=== PATIENT | female | born 1975 | race Caucasian/White ===

== ENCOUNTER 2016-05-08 12:01 | Emergency (ER) | payer MEDICAID ==
[2016-05-08 12:07] VITALS: BMI 24.2
[2016-05-08 12:08] VITALS: BP 107/71; PULSE 80; RESP 17; TEMP 98.9; O2SAT 100
--- NOTE | 2016-05-08 13:25 | C.PDOC ---
Time Seen by Provider: 05/08/16 12:13 Chief Complaint (Nursing): ENT Problem Past Medical History Vital Signs: Last Vital Signs Temp 98.9 F 05/08/16 12:07 Pulse 80 05/08/16 12:07 Resp 17 05/08/16 12:07 BP 107/71 05/08/16 12:07 Pulse Ox 100 05/08/16 12:07 - Medical History PMH: Bronchitis (frequent) Family History: States: Unknown Family Hx - Social History Hx Tobacco Use: No (Quit a few months ago) Hx Alcohol Use: No Hx Substance Use: No - Immunization History Hx Tetanus Toxoid Vaccination: Yes Hx Influenza Vaccination: Yes Hx Pneumococcal Vaccination: Yes ED Course And Treatment O2 Sat by Pulse Oximetry: 100 Disposition - Disposition Referrals: Yobani Ingram MD [Staff Provider] - Disposition: HOME/ ROUTINE Disposition Time: 13:23 Condition: GOOD Additional Instructions: Follow up with the medical doctor within 1-2 days. Return if worsened. Prescriptions: Ibuprofen [Motrin] 600 mg PO TID #21 tab Benzonatate [Tessalon Perles] 200 mg PO TID PRN #30 sgl PRN Reason: Cough predniSONE [Prednisone] 20 mg PO BID #10 tab Instructions: Upper Respiratory Infection (ED) - Clinical Impression Clinical Impression: Upper respiratory infection
--- NOTE | 2016-05-08 13:28 | C.PDOC ---
History Of Present Illness 41 yr old female presents to the ER with complaints of cough for the past 3 days , associated with sore throat and chills. Patient states when she coughs it feels like congestion in the chest. Patient denies fever, nausea, vomiting, rash , recent travel, weakness or numbness. Time Seen by Provider: 05/08/16 12:13 Chief Complaint (Nursing): ENT Problem History Per: Patient History/Exam Limitations: None Onset/Duration Of Symptoms: Days (3) Past Medical History Reviewed: Historical Data, Nursing Documentation, Vital Signs Vital Signs: Last Vital Signs Temp 98.9 F 05/08/16 12:07 Pulse 80 05/08/16 12:07 Resp 17 05/08/16 12:07 BP 107/71 05/08/16 12:07 Pulse Ox 100 05/08/16 13:33 - Medical History PMH: Bronchitis (frequent) Family History: States: No Known Family Hx - Social History Hx Tobacco Use: No (Quit a few months ago) Hx Alcohol Use: No Hx Substance Use: No - Immunization History Hx Tetanus Toxoid Vaccination: Yes Hx Influenza Vaccination: Yes Hx Pneumococcal Vaccination: Yes Review Of Systems Except As Marked, All Systems Reviewed And Found Negative. Constitutional: Positive for: Chills. Negative for: Fever ENT: Positive for: Throat Pain Respiratory: Positive for: Cough (with chest congestion ) Gastrointestinal: Negative for: Nausea, Vomiting Skin: Negative for: Rash Neurological: Negative for: Weakness, Numbness Physical Exam - Physical Exam Appears: Non-toxic, No Acute Distress Skin: Warm, Dry, No Rash Head: Atraumatic, Normacephalic Eye(s): bilateral: Normal Inspection, PERRL, EOMI Ear(s): Bilateral: Normal Throat: Normal, No Erythema, No Exudate, No Drooling Neck: Normal, Normal ROM, Supple Chest: Symmetrical, No Tenderness Cardiovascular: Rhythm Regular, No Murmur Respiratory: Normal Breath Sounds, No Rales, No Rhonchi, No Stridor, No Wheezing Gastrointestinal/Abdominal: Normal Exam, Soft, No Tenderness, No Guarding, No Rebound Extremity: Normal ROM, No Swelling Neurological/Psych: Oriented x3, Normal Speech, Normal Motor ED Course And Treatment O2 Sat by Pulse Oximetry: 100 Medical Decision Making Medical Decision Making: Physical exam is negative and lungs are clear xrays are not warranted at this time. PLAN: * Motrin PO * Tessalon PO * Prednisone PO Disposition - Disposition Referrals: Yobani Ingram MD [Staff Provider] - Disposition: HOME/ ROUTINE Disposition Time: 13:30 Condition: STABLE Additional Instructions: Follow up with the medical doctor within 1-2 days. Return if worsened. Prescriptions: Ibuprofen [Motrin] 600 mg PO TID #21 tab Benzonatate [Tessalon Perles] 200 mg PO TID PRN #30 sgl PRN Reason: Cough predniSONE [Prednisone] 20 mg PO BID #10 tab Instructions: Upper Respiratory Infection (ED) - Clinical Impression Clinical Impression: Upper respiratory infection - PA / ONCOLOGY PHYSICIAN / Resident Statement MD/DO has reviewed & agrees with the documentation as recorded. - Scribe Statement The provider has reviewed the documentation as recorded by the Scribe Binta Emery All medical record entries made by the Scribe were at my direction and personally dictated by me. I have reviewed the chart and agree that the record accurately reflects my personal performance of the history, physical exam, medical decision making, and the department course for this patient. I have also personally directed, reviewed, and agree with the discharge instructions and disposition.
== END 2016-05-08 13:38 | disposition home or self-care (01) ==
LOC: C.ER 12:01
DX: J06.9 Acute upper respiratory infection, unspecified (principal)

== ENCOUNTER 2016-05-27 17:01 | Emergency (ER) | payer MEDICAID ==
[2016-05-27 17:01] VITALS: BMI 24.2
[2016-05-27 17:07] VITALS: TEMP 98.2; O2SAT 96
--- NOTE | 2016-05-27 17:34 | C.PDOC ---
History Of Present Illness 41 y/o female presents to ED with complaint of cough for almost 2 weeks. Patient states she was seen in the ER, given Tessalon, which she has taken with no improvement. Patient states cough has been worsening and is now productive of yellow sputum. Denies fever, chills, shortness of breath, or other associated symptoms. Time Seen by Provider: 05/27/16 17:10 Chief Complaint (Nursing): Flu-like Symptoms History Per: Patient History/Exam Limitations: no limitations Onset/Duration Of Symptoms: Days Current Symptoms Are (Timing): Worse Location Of Pain: None Associated Symptoms: Cough, Sputum. denies: Fever, Chills, Sore Throat, Vomiting Ear Symptoms: Bilateral: None Recent travel outside of the [place]: No Past Medical History Reviewed: Historical Data, Nursing Documentation, Vital Signs Vital Signs: Last Vital Signs Temp 98.2 F 05/27/16 17:05 Pulse 72 05/27/16 18:12 Resp 18 05/27/16 18:12 BP 119/65 05/27/16 18:12 Pulse Ox 96 05/27/16 18:15 - Medical History PMH: Bronchitis (frequent) Family History: States: Unknown Family Hx - Social History Hx Tobacco Use: No (Quit a few months ago) Hx Alcohol Use: No Hx Substance Use: No - Immunization History Hx Tetanus Toxoid Vaccination: Yes Hx Influenza Vaccination: Yes Hx Pneumococcal Vaccination: Yes Review Of Systems Except As Marked, All Systems Reviewed And Found Negative. Constitutional: Negative for: Fever, Chills Cardiovascular: Negative for: Chest Pain Respiratory: Positive for: Cough, Sputum. Negative for: Shortness of Breath, Wheezing Gastrointestinal: Negative for: Nausea, Vomiting, Abdominal Pain Skin: Negative for: Rash Neurological: Negative for: Headache, Dizziness Physical Exam - Physical Exam Appears: Non-toxic, No Acute Distress Skin: Normal Color, Warm, Dry Head: Atraumatic, Normacephalic Eye(s): bilateral: Normal Inspection, EOMI Ear(s): Bilateral: Normal Oral Mucosa: Moist Throat: Normal, No Erythema, No Exudate, No Drooling Neck: Supple Chest: Symmetrical Cardiovascular: Rhythm Regular Respiratory: Normal Breath Sounds, No Accessory Muscle Use, No Rales, No Rhonchi , No Wheezing Gastrointestinal/Abdominal: Soft, No Tenderness, No Guarding, No Rebound Back: Normal Inspection Extremity: Normal ROM, Capillary Refill (< 2 sec. ) Neurological/Psych: Oriented x3, Normal Speech, Normal Cognition ED Course And Treatment O2 Sat by Pulse Oximetry: 96 (RA) Pulse Ox Interpretation: Normal - Radiology CXR: Interpreted by Me CXR Interpretation: Yes: No Acute Disease. No: Infiltrates Medical Decision Making Medical Decision Making: Plan: * CxR * Reassess Prior Visits: Notes and results from previous visits were reviewed. Progress Notes: CxR negative for acute disease or infiltrates, as read by me. On reassessment, patient is resting comfortably, and is in no acute distress. Patient instructed to follow up with clinic/PMD within 1-2 days. Disposition Counseled Patient/Family Regarding: Diagnosis, Need For Followup, Rx Given - Disposition Referrals: Yobani Ingram MD [Staff Provider] - Disposition: HOME/ ROUTINE Disposition Time: 17:34 Condition: STABLE Additional Instructions: Your xray shows no pnemonia Take Z-pack daily for bronchitis and cough medicine as needed Cough can linger for 2-3 weeks Follow up with your primary doctor or clinic Prescriptions: Promethazine DM [Phenergan DM Syrup] 5 ml PO Q8 PRN #3 oz PRN Reason: Cough Azithromycin [Z-Reyes] 250 mg PO DAILY #6 tab Instructions: Acute Bronchitis (ED) - POA Present On Arrival: None - Clinical Impression Clinical Impression: Bronchitis - PA / PATHOLOGY TEACHER / Resident Statement MD/DO has reviewed & agrees with the documentation as recorded. - Scribe Statement The provider has reviewed the documentation as recorded by the Aicha Carty Provider Scribe Attestation: All medical record entries made by the Aicha were at my direction and personally dictated by me. I have reviewed the chart and agree that the record accurately reflects my personal performance of the history, physical exam, medical decision making, and the department course for this patient. I have also personally directed, reviewed, and agree with the discharge instructions and disposition.
--- NOTE | 2016-05-27 18:03 | RAD ---
HISTORY: cough, sob COMPARISON: 02/17/2015. TECHNIQUE: Chest PA and lateral FINDINGS: LUNGS: No active pulmonary disease. PLEURA: No significant pleural effusion identified. No pneumothorax apparent. CARDIOVASCULAR: Normal. OSSEOUS STRUCTURES: No significant abnormalities. VISUALIZED UPPER ABDOMEN: Normal. OTHER FINDINGS: None. IMPRESSION: No active disease. No significant interval change compared to the prior examination(s).
[2016-05-27 18:13] VITALS: BP 119/65; PULSE 72; RESP 18
== END 2016-05-27 18:13 | disposition home or self-care (01) ==
LOC: C.ER 17:01
DX: J40 Bronchitis, not specified as acute or chronic (principal); Z87.891 Personal history of nicotine dependence

== ENCOUNTER 2018-01-31 16:35 | Emergency (ER) | payer MEDICAID ==
[2018-01-31 16:54] VITALS: BMI 25.0
[2018-01-31 16:56] VITALS: BP 113/73; PULSE 78; TEMP 98.9; O2SAT 100
[2018-01-31] MEDS ORDERED: guaiFENesin 100 mg/5 ml Syrup UD PO STA (17:08)
--- NOTE | 2018-01-31 17:09 | C.PDOC ---
History Of Present Illness 43 year old female presents to the ED complaining of nasal congestion, dry nonproductie cough, sore throat, and mild laryngitis for 4 days. Reports her voice is diminished. States she took Tylenol with no relief. Time Seen by Provider: 01/31/18 17:03 Chief Complaint (Nursing): Cough, Cold, Congestion History Per: Patient History/Exam Limitations: no limitations Onset/Duration Of Symptoms: Days (4) Current Symptoms Are (Timing): Still Present Location Of Pain: Throat Associated Symptoms: Sore Throat, Cough, Nasal Congestion. denies: Fever, Chills, Nausea, Vomiting, Diarrhea Ear Symptoms: Bilateral: None Past Medical History Reviewed: Historical Data, Nursing Documentation, Vital Signs Vital Signs: Last Vital Signs Temp 98.9 F 01/31/18 16:51 Pulse 78 01/31/18 16:51 Resp 20 01/31/18 16:51 BP 113/73 01/31/18 16:51 Pulse Ox 100 01/31/18 16:51 - Medical History PMH: Bronchitis (frequent) Surgical History: Family History: States: No Known Family Hx - Social History Hx Tobacco Use: No (Quit a few months ago) Hx Alcohol Use: No Hx Substance Use: No - Immunization History Hx Tetanus Toxoid Vaccination: No Hx Influenza Vaccination: Yes Hx Pneumococcal Vaccination: Yes Review Of Systems Except As Marked, All Systems Reviewed And Found Negative. Constitutional: Negative for: Fever, Chills ENT: Positive for: Nose Congestion, Throat Pain. Negative for: Ear Pain Respiratory: Positive for: Cough. Negative for: Shortness of Breath Gastrointestinal: Negative for: Nausea, Vomiting, Abdominal Pain, Diarrhea Physical Exam - Physical Exam Appears: Non-toxic, No Acute Distress Skin: Warm, Dry, No Rash Head: Normacephalic Eye(s): bilateral: Normal Inspection Ear(s): Bilateral: Normal Nose: Normal Oral Mucosa: Moist Throat: Erythema (mild), No Exudate, No Drooling Neck: Supple Chest: Symmetrical Cardiovascular: Rhythm Regular Respiratory: Normal Breath Sounds, No Rales, No Rhonchi, No Wheezing Extremity: Normal ROM Neurological/Psych: Oriented x3, Normal Speech Gait: Steady ED Course And Treatment O2 Sat by Pulse Oximetry: 100 (RA) Pulse Ox Interpretation: Normal Medical Decision Making Medical Decision Making: Plan - Robitusin 100mg PO - Motrin 600mg PO viral syndrome mild laryngitis no FAISAL, clear lungs, mild throat erythema Disposition Doctor Will See Patient In The: Office Counseled Patient/Family Regarding: Studies Performed, Diagnosis - Disposition Referrals: Yobani Ingram MD [Staff Provider] - Disposition: HOME/ ROUTINE Disposition Time: 17:09 Condition: GOOD Additional Instructions: sigue Dayquil/Nyquil viky dirijidos (o' el quivelente) No trabajas hasta que no tiene fieere por 24 horas. Instructions: Viral Syndrome (DC) Forms: [employer] (Kosovan), Work Excuse Print Language: SLOVAK - Clinical Impression Clinical Impression: Influenza-like illness - Scribe Statement The provider has reviewed the documentation as recorded by the Scribmaite Fernandes All medical record entries made by the Scribe were at my direction and personally dictated by me. I have reviewed the chart and agree that the record accurately reflects my personal performance of the history, physical exam, medical decision making, and the department course for this patient. I have also personally directed, reviewed, and agree with the discharge instructions and disposition.
[2018-01-31] MEDS ORDERED: guaiFENesin 100 mg/5 ml Syrup UD ONE (17:13)
[2018-01-31 17:18] VITALS: RESP 17
== END 2018-01-31 17:17 | disposition home or self-care (01) ==
LOC: C.ER 16:35
DX: J11.1 Influenza due to unidentified influenza virus with other respiratory manifestations (principal)

== ENCOUNTER 2018-03-03 08:25 | Emergency (ER) | payer MEDICAID ==
[2018-03-03 08:25] VITALS: BMI 24.2
[2018-03-03 08:47] VITALS: RESP 18; O2SAT 99
[2018-03-03] MEDS ORDERED: Sodium Chloride 0.9% 1,000 ML IV ONE (09:09)
[2018-03-03 10:01] LABS: BASO % 0.6 % (0.0-2.0); EOS # 0.1 K/uL (0.0-0.7); EOS % 0.7 % (0.0-4.0); HEMOGLOBIN 12.7 g/dL (11.0-16.0); LYMPH # 1.4 K/uL (1.0-4.3); LYMPH % 18.1 % (20.0-40.0); MEAN CELL VOLUME 93.3 fL (81.0-99.0); MEAN CORPUSCULAR HEMOGLOBIN 32.1 pg (27.0-31.0); MEAN CORPUSCULAR HGB CONC 34.4 g/dL (33.0-37.0); MEAN PLATELET VOLUME 8.8 fL (7.2-11.7); MONO # 0.7 K/uL (0.0-0.8); MONO % 9.3 % (0.0-10.0); NEUT # 5.5 K/uL (1.8-7.0); NEUT % 71.3 % (50.0-75.0); RBC 3.94 Mil/uL (3.80-5.20); RED CELL DISTRIBUTION WIDTH 13.1 % (11.5-14.5); WHITE BLOOD COUNT 7.7 K/uL (4.8-10.8)
[2018-03-03 10:08] LABS: PROTHROMBIN TIME 11.4 SECONDS (9.7-12.2)
[2018-03-03 10:26] LABS: HCG,QUALITATIVE URINE NEGATIVE (NEGATIVE)
[2018-03-03 10:29] LABS: SQUAMOUS EPITHIAL < 1 /hpf (0-5); URINE BACTERIA MOD (<OCC); URINE BILIRUBIN NEGATIVE (NEGATIVE); URINE BLOOD 1+ (NEGATIVE); URINE CLARITY Clear (Clear); URINE COLOR Yellow (YELLOW); URINE GLUCOSE (UA) NORMAL (Normal); URINE LEUKOCYTE ESTERASE 1+ Leu/uL (Negative); URINE PROTEIN NEGATIVE (NEGATIVE); URINE UROBILINOGEN NORMAL mg/dL (0.2-1.0)
[2018-03-03 10:41] LABS: ALB/GLOB RATIO 1.3 (1.0-2.1); ALBUMIN 4.1 g/dL (3.5-5.0); ALT/SGPT 22 U/L (9-52); AST/SGOT 15 U/L (14-36); BLOOD UREA NITROGEN 11 mg/dL (7-17); CALCIUM 8.8 mg/dl (8.6-10.4); GFR NON-AFRICAN AMERICAN > 60; LIPASE 35 U/L (23-300)
[2018-03-03] MEDS ORDERED: Iodixanol 320 mg/ml 150 ml Bottle IV ONE (12:17)
--- NOTE | 2018-03-03 12:37 | C.PDOC ---
History Of Present Illness Patient presents to ED c/o right sided periumbilical/RLQ pain since yesterday. She states the pain worsens with ambulationg, is contant and nonraditing. She denies nausea/vomiting/diarrhea, fever, dysuria/hematuria, vaginal discharge, prior episodes of similar kind of pain. Time Seen by Provider: 03/03/18 09:01 Chief Complaint (Nursing): Abdominal Pain History Per: Patient History/Exam Limitations: no limitations Onset/Duration Of Symptoms: Days (2) Severity: Moderate Location Of Pain/Discomfort: RLQ, Periumbilical (right ) Radiation Of Pain To:: None Past Medical History Reviewed: Historical Data, Nursing Documentation, Vital Signs Vital Signs: Last Vital Signs Temp 98.6 F 03/03/18 08:45 Pulse 84 03/03/18 08:45 Resp 18 03/03/18 08:45 BP 111/75 03/03/18 08:45 Pulse Ox 99 03/03/18 08:45 - Medical History PMH: Bronchitis (frequent) Surgical History: Family History: States: No Known Family Hx - Social History Hx Tobacco Use: No (Quit a few months ago) Hx Alcohol Use: No Hx Substance Use: No - Immunization History Hx Tetanus Toxoid Vaccination: No Hx Influenza Vaccination: Yes Hx Pneumococcal Vaccination: Yes Review Of Systems Constitutional: Negative for: Fever, Chills Cardiovascular: Negative for: Chest Pain, Palpitations Respiratory: Negative for: Cough, Shortness of Breath Gastrointestinal: Positive for: Abdominal Pain. Negative for: Nausea, Vomiting, Diarrhea Genitourinary: Negative for: Dysuria, Hematuria, Vaginal Discharge Skin: Negative for: Rash Physical Exam - Physical Exam Appears: Well, Non-toxic, In Acute Distress (in mild pain ) Skin: Warm, Dry Eye(s): bilateral: Normal Inspection Oral Mucosa: Moist Cardiovascular: Rhythm Regular Respiratory: Normal Breath Sounds, No Rales, No Rhonchi, No Wheezing Gastrointestinal/Abdominal: Bowel Sounds, Soft, Tenderness ((+) RLQ and R periumbilical TTP), No Distention, No Guarding, No Rebound Back: Normal Inspection, No CVA Tenderness Neurological/Psych: Oriented x3 ED Course And Treatment - Laboratory Results Result Diagrams: 03/03/18 09:52 03/03/18 10:11 Lab Results: PT 11.4 SECONDS (9.7-12.2) 03/03/18 09:52 INR 1.0 03/03/18 09:52 APTT 34 SECONDS (21-34) 03/03/18 09:52 Total Bilirubin 0.5 mg/dL (0.2-1.3) 03/03/18 10:11 AST 15 U/L (14-36) 03/03/18 10:11 ALT 22 U/L (9-52) 03/03/18 10:11 Alkaline Phosphatase 62 U/L (38-126) 03/03/18 10:11 Total Protein 7.1 g/dL (6.3-8.3) 03/03/18 10:11 Albumin 4.1 g/dL (3.5-5.0) 03/03/18 10:11 Globulin 3.0 gm/dL (2.2-3.9) 03/03/18 10:11 Albumin/Globulin Ratio 1.3 (1.0-2.1) 03/03/18 10:11 Lipase 35 U/L (23-300) 03/03/18 10:11 Urine Color Yellow (YELLOW) 03/03/18 10:11 Urine Clarity Clear (Clear) 03/03/18 10:11 Urine pH 5.0 (5.0-8.0) 03/03/18 10:11 Ur Specific Viola 1.006 (1.003-1.030) 03/03/18 10:11 Urine Protein Negative mg/dL (NEGATIVE) 03/03/18 10:11 Urine Glucose (UA) Normal mg/dL (Normal) 03/03/18 10:11 Urine Ketones Negative mg/dL (NEGATIVE) 03/03/18 10:11 Urine Blood 1+ (NEGATIVE) H 03/03/18 10:11 Urine Nitrate Negative (NEGATIVE) 03/03/18 10:11 Urine Bilirubin Negative (NEGATIVE) 03/03/18 10:11 Urine Urobilinogen Normal mg/dL (0.2-1.0) 03/03/18 10:11 Ur Leukocyte Esterase 1+ Charly/uL (Negative) H 03/03/18 10:11 Urine WBC (Auto) 12 /hpf (0-5) H 03/03/18 10:11 Urine RBC (Auto) 1 /hpf (0-3) 03/03/18 10:11 Ur Squamous Epith Cells < 1 /hpf (0-5) 03/03/18 10:11 Urine Bacteria Mod (<OCC) H 03/03/18 10:11 Urine HCG, Qual Negative (NEGATIVE) 03/03/18 10:11 Urine HCG, Qual Negative (NEGATIVE) 03/03/18 10:11 O2 Sat by Pulse Oximetry: 99 (RA) Pulse Ox Interpretation: Normal - CT Scan/US CT ABD/PELVIS Other Rad Studies (CT/US): Read By Radiologist, Radiology Report Reviewed CT/US Interpretation: Accession No. : [id number]. Patient Name / ID : DARRYL CONNELL / [id number]. Exam Date : 03/03/2018 12:30:22 ( Approved ). Study Comment : Sex / Age : F / 43Y. Creator : Adilene Gregory. Dictator : Niraj Shelton MD. Office Services Manager : Welcome Wagon Hostess : Niraj Shelton MD. Approver2 : Report Date : 03/03/2018 13:23:01. My Comment : . Date of service: 03/03/2018. PROCEDURE: CT Abdomen and Pelvis with contrast. HISTORY: rlq pain, r/o appendicitis. COMPARISON: None. TECHNIQUE: Following the intravenous administration of iodinated contrast material, a CT examination of the abdomen and pelvis performed from the domes of the diaphragms to the symphysis pubis with reformatted datasets provided in axial, sagittal and coronal planes. Oral contrast was not administered as per referring physician request. Coronal and sagittal reformats were generated. Contrast dose: Visipaque 320, 100 cc. Radiation dose: Total exam DLP = 373.46 mGy-cm. This CT exam was performed using one or more of the following dose reduction techniques: Automated exposure control, adjustment of the mA and/or kV according to patient size, and/or use of iterative reconstruction technique. FINDINGS: LOWER THORAX: Unremarkable. LIVER: Unremarkable. No gross lesion or ductal dilatation. GALLBLADDER AND BI LE DUCTS: Cholelithiasis minimally noted at the dependent gallbladder with the gallbladder distended but otherwise unremarkable. No mural thickening or pericholecystic fluid collection evident. PANCREAS: Unremarkable. No gross lesion or ductal dilatation. SPLEEN: Unremarkable. ADRENALS: Unremarkable. No mass. KIDNEYS AND URETERS: There is a small 9 mm lucency at the midpole right kidney antral laterally which poorly defined and difficult to characterize due to its small size. Bilateral renal parenchyma is otherwise unremarkable appearing. VASCULATURE: Unremarkable. No aortic aneurysm. No aortic atherosclerotic calcification or mural plaque present. BOWEL: Moderate fecal loading is seen throughout the colon. No bowel obstruction. No gross mural thickening. APPENDIX: Normal appendix. PERITONEUM: Unremarkable. No free fluid. No free air. LYMPH NODES: Unremarkable. No enlarged lymph nodes. BLADDER: Unremarkable. REPRODUCTIVE: Tampon in situ at the vagina. No laura picious adnexal findings. Note is made of trace fluid in the cul-de-sac however. BONES: No acute fracture. OTHER FINDINGS: None. IMPRESSION: 1. Cholelithiasis within a distended but otherwise unremarkable gallbladder. No biliary tree dilatation. 2. Small lucency at the midpole right kidney laterally which is difficult to characterize due to its small size. Nevertheless, it appears ill-defined. No pericolic reaction or fluid collection. This could represent a small parenchymal cyst though nodule is not excluded. 3. Nonspecific cul-de-sac fluid with no suspicious adnexal findings identified. 4. Normal appendix. Progress Note: Blood work, UA, Upreg, CT scan abd/pelvis ordered and reviewed. Patient given IV NS bolus, IV toradol. Disposition Counseled Patient/Family Regarding: Studies Performed, Diagnosis, Need For Followup, Rx Given - Disposition Referrals: Jaciel Retana MD [Staff Provider] - Yobani Ingram MD [Staff Provider] - Disposition: HOME/ ROUTINE Disposition Time: 14:30 Condition: STABLE Additional Instructions: FOLLOW UP WITH YOUR DOCTOR IN 1-2 DAYS, AND WITH GENERAL SURGEON WITHIN 1 WEEK USE MEDICATIONS DIRECTED RETURN TO ER IF SYMPTOMS WORSEN Prescriptions: Naproxen 375 mg PO BID PRN #20 tablet PRN Reason: pain Nitrofurantoin Macrocrystals [Macrobid] 1 cap PO BID #14 cap Instructions: Gallstones (DC), Urinary Tract Infection, Adult (DC) Forms: [employer] (Maori) Print Language: SLOVENIAN - Clinical Impression Clinical Impression: Cholelithiasis, UTI (urinary tract infection)
--- NOTE | 2018-03-03 14:08 | CT ---
Date of service: 03/03/2018 PROCEDURE: CT Abdomen and Pelvis with contrast HISTORY: rlq pain, r/o appendicitis COMPARISON: None. TECHNIQUE: Following the intravenous administration of iodinated contrast material, a CT examination of the abdomen and pelvis performed from the domes of the diaphragms to the symphysis pubis with reformatted datasets provided in axial, sagittal and coronal planes. Oral contrast was not administered as per referring physician request. Coronal and sagittal reformats were generated. Contrast dose: Visipaque 320, 100 cc Radiation dose: Total exam DLP = 373.46 mGy-cm. This CT exam was performed using one or more of the following dose reduction techniques: Automated exposure control, adjustment of the mA and/or kV according to patient size, and/or use of iterative reconstruction technique. FINDINGS: LOWER THORAX: Unremarkable. LIVER: Unremarkable. No gross lesion or ductal dilatation. GALLBLADDER AND BILE DUCTS: Cholelithiasis minimally noted at the dependent gallbladder with the gallbladder distended but otherwise unremarkable. No mural thickening or pericholecystic fluid collection evident. PANCREAS: Unremarkable. No gross lesion or ductal dilatation. SPLEEN: Unremarkable. ADRENALS: Unremarkable. No mass. KIDNEYS AND URETERS: There is a small 9 mm lucency at the midpole right kidney antral laterally which poorly defined and difficult to characterize due to its small size. Bilateral renal parenchyma is otherwise unremarkable appearing. VASCULATURE: Unremarkable. No aortic aneurysm. No aortic atherosclerotic calcification or mural plaque present. BOWEL: Moderate fecal loading is seen throughout the colon. No bowel obstruction. No gross mural thickening. APPENDIX: Normal appendix. PERITONEUM: Unremarkable. No free fluid. No free air. LYMPH NODES: Unremarkable. No enlarged lymph nodes. BLADDER: Unremarkable. REPRODUCTIVE: Tampon in situ at the vagina. No suspicious adnexal findings. Note is made of trace fluid in the cul-de-sac however. BONES: No acute fracture. OTHER FINDINGS: None. IMPRESSION: 1. Cholelithiasis within a distended but otherwise unremarkable gallbladder. No biliary tree dilatation. 2. Small lucency at the midpole right kidney laterally which is difficult to characterize due to its small size. Nevertheless, it appears ill-defined. No pericolic reaction or fluid collection. This could represent a small parenchymal cyst though nodule is not excluded. 3. Nonspecific cul-de-sac fluid with no suspicious adnexal findings identified. 4. Normal appendix.
[2018-03-03 14:58] VITALS: BP 109/75; PULSE 87; TEMP 98.4
== END 2018-03-03 14:57 | disposition home or self-care (01) ==
LOC: C.ER 08:25
DX: N39.0 Urinary tract infection, site not specified (principal); K80.20 Calculus of gallbladder without cholecystitis without obstruction
CPT/HCPCS: 74177; 80053; 81001; 83690; 84703; 85025; 85610; 85730; 86850; 86900; 96374; 99284; J1885; J7030; Q9967

== ENCOUNTER 2018-03-11 10:16 | Day surgery (SDC) | payer MEDICAID ==
[2018-03-10 08:12] VITALS: BMI 25.0
[2018-03-11] MEDS ORDERED: ceFAZolin 1 gm in NS 1 GM/100 ML BAG IVPB ONE (13:21)
[2018-03-11] MEDS ORDERED: Bupivacaine-Epi 0.5%-1:200,000 PF Inj ONE (13:21)
[2018-03-11] MEDS ORDERED: Succinylcholine Chloride 20 mg/ml Syr (5 ml) IV ONE (13:46)
[2018-03-11] MEDS ORDERED: Propofol 10 mg/ml Inj (20 ML) ONE (13:46)
[2018-03-11] MEDS ORDERED: Rocuronium 10 mg/ml (5 ml) ONE (13:46)
[2018-03-11] MEDS ORDERED: Midazolam 2 MG/2 ML VIAL ONE (13:46)
--- NOTE | 2018-03-11 14:59 | PCM.SURG1 ---
Surgeon's Initial Post Op Note - Surgeon's Notes Surgeon: Dr. Retana Continuing Education Specialist: Dr. spaulding Type of Anesthesia: General Endo Pre-Operative Diagnosis: Cholecystitis Operative Findings: see operative note Post-Operative Diagnosis: same Operation Performed: laparoscopic cholecystectomy Specimen/Specimens Removed: gallbladder Estimated Blood Loss: EBL {In ML}: 5 Blood Products Given: N/A Drains Used: No Drains Post-Op Condition: Good Date of Surgery/Procedure: 03/11/18 Time of Surgery/Procedure: 14:58
[2018-03-11] MEDS: HYDROmorphone 0.5 mg/0.5 ml ISec IVP PRN ×3 (15:00→15:34)
[2018-03-11] MEDS ORDERED: Oxycodone/Acetaminophen 5/325 mg Tab PO PRN (15:15)
[2018-03-11 17:07] VITALS: RESP 16
[2018-03-11 17:56] VITALS: BP 103/61; PULSE 58; TEMP 97.6; O2SAT 98
--- NOTE | 2018-03-20 05:08 | OP ---
PROCEDURE DATE: 03/11/2018 PROCEDURE: Laparoscopic cholecystectomy. SURGEON: Jaciel Retana MD. PAPER SAMPLE CLERK: Jared Jo D.O., PGY-1. ANESTHESIA: General. PREOPERATIVE DIAGNOSIS: Symptomatic cholelithiasis. POSTOPERATIVE DIAGNOSIS: Symptomatic cholelithiasis. INDICATIONS: This is a 43-year-old female with symptomatic cholelithiasis. Cholecystectomy was indicated and recommended at this time with the patient medically optimized. The risks, benefits, and surgery rationale were explained. Informed consent was obtained with nurse at bedside as witness. DESCRIPTION OF PROCEDURE: The patient was taken to the operating room and placed on the table in supine position with left arm tucked in. Time-outs were performed to verify correct patient, procedure, site, and additional critical information prior to beginning the procedure. Preoperatively, 2 g of Ancef was administered. General anesthesia was initiated, and the patient was intubated. The patient was then prepped and draped in sterile fashion. A periumbilical incision was then made and the Veress needle inserted. Proper position was confirmed. The abdomen was insufflated with CO2 to a pressure of 15 to achieve pneumoperitoneum. The patient tolerated insufflation well. A 12-mm trocar was then inserted at the umbilicus. The laparoscope was inserted under direct vision and the abdomen was inspected to ensure no injuries occurred with initial port placement. Additional ports were placed as follows: A 5-mm subxiphoid port and a 5-mm port along the right subcostal margin along with local anesthetic. Table was placed in reverse Trendelenburg with right side up. Omental attachments to the gallbladder were taken down gently. The gallbladder fundus was then grasped and retracted cephalad over the dome of the liver. Adhesions between the gallbladder and omentum and duodenum were carefully taken down. Dissection was done to expose Calot's triangle. Peritoneum overlying the infundibulum was incised and stripped inferiorly. Then, the posterior peritoneum was dissected. The cystic duct and cystic artery were identified and dissected circumferentially until critical view of CT was obtained. Cystic duct and artery were then doubly clipped and divided. The gallbladder was dissected off the liver bed with electrocautery. Hemostasis was achieved. There was no leakage of bile from the cystic duct stump. Gallbladder was placed in an Endo Catch retrieval bag and removed through the umbilical incision. Specimen sent to Pathology. Thorough irrigation was performed. Ports were removed under direct supervision with no bleeding noted at trocar sites, and the abdomen was deflated. 0-Vicryl was used to close the fascia at the umbilical port site. Skin of all incisions was reapproximated with subcuticular 4-0 Monocryl and Dermabond. Operative field was cleaned and dried. Island dressings were applied. No intraoperative complications encountered. All instruments and sponge counts were correct. The patient was extubated in the OR and transferred to PACU in stable condition. Jared Jo D.O. Jaciel Retana MD
== END 2018-03-11 18:45 | disposition home or self-care (01) ==
LOC: C.SDS 10:16
PROVIDERS: ATTEND Surgery
DX: K80.10 Calculus of gallbladder with chronic cholecystitis without obstruction (principal); Z87.09 Personal history of other diseases of the respiratory system
CPT/HCPCS: 47562; 88304; J0690; J1170; J2250; J2405; J2704; J3010; J7120